=== PATIENT | female | born 1960 | race Caucasian/White ===

== ENCOUNTER → 2021-09-02 10:45 | Outpatient (BNVA) | payer OTHER, SELFPAY | PROVIDERS: PCP Internal Medicine; Referring Provider Internal Medicine; Visit Provider Physician Assistant | DX: R13.10 Dysphagia, unspecified (principal); K21.9 Gastro-esophageal reflux disease without esophagitis; R10.9 Unspecified abdominal pain | CPT/HCPCS: 99212 ==

== ENCOUNTER 2021-09-02 11:55 | Outpatient (REF) | payer OTHER, SELFPAY ==
[2021-09-02 14:00] LABS: MANUAL DIFF FLAG NO
[2021-09-02 14:08] LABS: Basophils Absolute Auto 0.1 X10*3/uL (0.0-0.2); Basophils Percent Auto 0.7 % (0-2); Eosinophils Absolute Auto 0.2 X10*3/uL (0.0-0.4); Eosinophils Percent Auto 2.2 % (0-4); Hematocrit 40.4 % (37-47); Imm Gran Abs Auto 0.02 X10*3/uL (0.00-0.03); Imm Gran Pct Auto 0.3 % (0.0-0.4); Lymphocytes Absolute Auto 2.4 X10*3/uL (1.2-4.9); Lymphocytes Percent Auto 35.9 % (20-40); Mean Corpuscular HGB Conc 32.2 g/dl (31.0-35.0); Mean Corpuscular Hemoglobin 28.7 pg (27.0-33.0); Mean Corpuscular Volume 89.2 fL (80-98); Mean Platelet Volume 11.4 fL (9.4-12.3); Monocytes Absolute Auto 0.4 X10*3/uL (0.1-1.2); Monocytes Percent Auto 6.4 % (2-11); Neutrophils Absolute Auto 3.6 X10*3/uL (2.0-8.3); Neutrophils Percent Auto 54.5 % (45-73); Platelet Count 316 X10*3/uL (160-400); Red Blood Count 4.53 X10*6/uL (4.20-5.50); Red Cell Distribution Width 12.9 % (11.0-16.0); White Blood Count 6.7 X10*3/uL (4.8-10.8)
[2021-09-02 14:16] LABS: Estimated Average Glucose 126 mg/dL
[2021-09-02 14:32] LABS: Alanine Aminotransferase 18 U/L (0-31); Albumin Level 4.5 g/dL (3.5-5.0); Alkaline Phosphatase 98 U/L (39-117); Anion Gap 12 (12-20); Aspartate Amino Transferase 17 U/L (5-31); Bilirubin Total 0.5 mg/dL (0.0-1.0); Blood Urea Nitrogen 12 mg/dL (9-16); Calcium 9.7 mg/dL (8.4-10.2); Carbon Dioxide 27 mmol/L (22-29); Chloride 106 mmol/L (96-108); Estimated Glomerular Filt Rate > 60; Glucose Random 108 mg/dL (60-115); Potassium 4.5 mmol/L (3.3-5.1); Sodium 140 mmol/L (135-145); Total Protein 7.3 g/dL (6.5-8.0)
[2021-09-02 14:53] LABS: Thyroid Stimulating Hormone 1.54 uIU/mL (0.32-4.0)
== END 2021-09-02 11:56 | disposition home or self-care (01) ==
LOC: HO.WFDLDS 11:55
PROVIDERS: Visit Provider Physician Assistant
DX: R10.9 Unspecified abdominal pain (principal); K59.09 Other constipation
CPT/HCPCS: 36415; 80053; 83036; 84443; 85025

== ENCOUNTER 2021-09-15 12:37 | Outpatient (REF) | payer OTHER, SELFPAY | END 2021-09-15 12:38 | disposition home or self-care (01) | LOC: HO.WFDLNP 12:37 | PROVIDERS: Visit Provider Physician Assistant | DX: A04.8 Other specified bacterial intestinal infections (principal) | CPT/HCPCS: 87338 ==

== ENCOUNTER 2021-12-17 10:13 | Outpatient (REF) | payer OTHER, SELFPAY ==
--- NOTE | ~2021-12-17 | US_ITS ---
EXAMINATION: US ABDOMEN COMPLETE CLINICAL INFORMATION: Right upper quadrant pain. COMPARISON: None TECHNIQUE: Real-time imaging of the abdominal viscera. FINDINGS: PANCREAS: The pancreas is partially obscured by overlying gas. The visualized body of the pancreas is unremarkable. ABDOMINAL AORTA: The proximal, mid, and distal segments are normal in caliber. INFERIOR VENA CAVA: Visualized portions are normal. LIVER: Normal. The liver is normal in size. The liver contour is normal. Parenchymal echogenicity is increased. No focal hepatic lesion. There is no intrahepatic biliary duct dilatation seen. GALLBLADDER: Normal. The gallbladder is physiologically distended without evidence of stones, sludge, polyps, wall thickening or pericholecystic fluid. COMMON BILE DUCT: Normal in caliber measuring 0.67 cm in diameter. RIGHT KIDNEY: Normal. No hydronephrosis. No renal calculi or focal parenchymal lesions. The kidney measures 9.9 cm in maximum dimension. LEFT KIDNEY: Normal. No hydronephrosis. No renal calculi or focal parenchymal lesions. The kidney measures 11.2 cm in maximum dimension. SPLEEN: Normal. The spleen measures 9.8 cm in maximum dimension. FREE FLUID: None. US/US abdomen complete IMPRESSION: Mild hepatic steatosis without focal lesion. The pancreas is partially obscured by overlying gas. The rest of the abdominal ultrasound is unremarkable.
== END 2021-12-17 10:14 | disposition home or self-care (01) ==
LOC: HO.US 10:13
PROVIDERS: Visit Provider Physician Assistant
DX: R10.11 Right upper quadrant pain (principal)
CPT/HCPCS: 76700

== ENCOUNTER → 2021-12-23 10:51 | Outpatient (BNVA) | payer OTHER, SELFPAY | PROVIDERS: PCP Internal Medicine; Visit Provider Physician Assistant | DX: K21.9 Gastro-esophageal reflux disease without esophagitis (principal); R10.9 Unspecified abdominal pain | CPT/HCPCS: 99212 ==

== ENCOUNTER 2022-02-18 10:04 | Outpatient (REF) | payer OTHER, SELFPAY ==
--- NOTE | ~2022-02-18 | FL_ITS ---
EXAMINATION: FL BARIUM SWALLOW CLINICAL INFORMATION: Abdominal epigastric pain. COMPARISON: None TECHNIQUE: Barium swallow examination is performed using fluoroscopic evaluation in addition to multiple fluoroscopic spot views. The patient is imaged both upright and prone and using both thick and thin sulfate along with effervescent granules. Fluoroscopy time: 1 minutes DAP: 7.98 Gycm2 Images: 34 FINDINGS: Following intravenous administration of thick barium, barium-coated turkey in upright position, there is normal propagation of bolus from the oral cavity through the pharynx, esophagus into stomach without any evidence of obstruction or narrowing. On placing patient prone lying and with oral administration of thin barium, there is good distention of entire esophagus without intrinsic narrowing or extrinsic compression. A small sliding hiatal hernia with mild reflux is seen. FL/FL barium swallow IMPRESSION: Small sliding hiatal hernia with mild gastroesophageal reflux in supine position.
== END 2022-02-18 10:05 | disposition home or self-care (01) ==
LOC: HO.XRAY 10:04
PROVIDERS: Visit Provider Physician Assistant
DX: R10.9 Unspecified abdominal pain (principal)
CPT/HCPCS: 74220

== ENCOUNTER → 2022-03-03 13:00 | Outpatient (BNVA) | payer OTHER, SELFPAY | PROVIDERS: PCP Internal Medicine; Referring Provider Internal Medicine; Visit Provider Physician Assistant | DX: K21.9 Gastro-esophageal reflux disease without esophagitis (principal); K44.9 Diaphragmatic hernia without obstruction or gangrene; R13.10 Dysphagia, unspecified; R10.9 Unspecified abdominal pain; R19.5 Other fecal abnormalities | CPT/HCPCS: 99212 ==

== ENCOUNTER → 2023-01-27 10:00 | Outpatient (BNVA) | payer OTHER, SELFPAY | PROVIDERS: PCP Internal Medicine; Visit Provider Physician Assistant ==

== ENCOUNTER 2023-01-27 10:51 | Outpatient (REF) | payer OTHER, SELFPAY ==
[2023-01-27 14:44] LABS: MANUAL DIFF FLAG NO
[2023-01-27 14:49] LABS: Basophils Absolute Auto 0.1 X10*3/uL (0.0-0.2); Basophils Percent Auto 0.9 % (0-2); Eosinophils Absolute Auto 0.2 X10*3/uL (0.0-0.4); Eosinophils Percent Auto 2.3 % (0-4); Hematocrit 42.3 % (37.0-47.0); Hemoglobin 13.7 g/dl (12.0-16.0); Imm Gran Abs Auto 0.03 X10*3/uL (0.00-0.03); Imm Gran Pct Auto 0.3 % (0.0-0.4); Lymphocytes Absolute Auto 2.7 X10*3/uL (1.2-4.9); Lymphocytes Percent Auto 30.6 % (20-40); Mean Corpuscular HGB Conc 32.4 g/dl (31.0-35.0); Mean Corpuscular Hemoglobin 29.2 pg (27.0-33.0); Mean Corpuscular Volume 90.2 fL (80.0-98.0); Monocytes Absolute Auto 0.5 X10*3/uL (0.1-1.2); Neutrophils Absolute Auto 5.3 x10*3/uL (2.0-8.3); Neutrophils Percent Auto 59.9 % (45-73); Platelet Count 394 X10*3/uL (160-400); Red Blood Count 4.69 X10*6/uL (4.20-5.50); White Blood Count 8.8 X10*3/uL (4.8-10.8)
[2023-01-27 15:05] LABS: Alanine Aminotransferase 21 U/L (0-31); Albumin Level 4.4 g/dL (3.5-5.0); Alkaline Phosphatase 95 U/L (39-117); Anion Gap 11 (12-20); Aspartate Amino Transferase 17 U/L (5-31); Bilirubin Total 0.5 mg/dL (0.0-1.0); Blood Urea Nitrogen 14 mg/dL (9-16); Calcium 9.4 mg/dL (8.4-10.2); Carbon Dioxide 31 mmol/L (22-29); Chloride 102 mmol/L (96-108); Estimated Glomerular Filt Rate > 60; Glucose Random 104 mg/dL (60-115); Potassium 4.6 mmol/L (3.3-5.1); Sodium 139 mmol/L (135-145); Total Protein 7.1 g/dL (6.5-8.0)
== END 2023-01-27 10:52 | disposition home or self-care (01) ==
LOC: HO.WFDLDS 10:51
PROVIDERS: Visit Provider Physician Assistant
DX: K21.9 Gastro-esophageal reflux disease without esophagitis (principal); K58.1 Irritable bowel syndrome with constipation; K58.0 Irritable bowel syndrome with diarrhea; K44.9 Diaphragmatic hernia without obstruction or gangrene; R10.11 Right upper quadrant pain; R19.5 Other fecal abnormalities
CPT/HCPCS: 36415; 80053; 85025; 99212

== ENCOUNTER 2023-02-11 09:18 | Outpatient (REF) | payer OTHER, SELFPAY ==
--- NOTE | ~2023-02-11 | US_ITS ---
EXAMINATION: US ABDOMEN COMPLETE CLINICAL INFORMATION: Right upper quadrant pain. Distant status post cholecystectomy. Please comment on CBD. COMPARISON: Ultrasound abdomen complete 12/17/2021. TECHNIQUE: Real-time imaging of the abdominal viscera. FINDINGS: PANCREAS: The pancreas appears unremarkable, without masses or ductal dilatation, with the exception of the tail which is obscured by bowel gas. ABDOMINAL AORTA: The proximal, mid, and distal segments are normal in caliber. INFERIOR VENA CAVA: Visualized portions are normal. LIVER: The liver is enlarged and demonstrates increased echogenicity consistent with hepatic steatosis. The liver contour is normal. No focal hepatic lesion. There is no intrahepatic biliary duct dilatation seen. GALLBLADDER: Surgically absent. COMMON BILE DUCT: Normal in caliber measuring 0.6 cm in diameter. RIGHT KIDNEY: Normal. No hydronephrosis. No renal calculi or focal parenchymal lesions. The kidney measures 11.3 cm in maximum dimension. LEFT KIDNEY: Normal. No hydronephrosis. No renal calculi or focal parenchymal lesions. The kidney measures 11.3 cm in maximum dimension. SPLEEN: Normal. The spleen measures 10.1 cm in maximum dimension. FREE FLUID: None. US/US abdomen complete IMPRESSION: Enlarged fatty liver.
== END 2023-02-11 09:19 | disposition home or self-care (01) ==
LOC: HO.HMGCX 09:18
PROVIDERS: Visit Provider Physician Assistant
DX: R10.11 Right upper quadrant pain (principal)
CPT/HCPCS: 76700

== ENCOUNTER 2023-02-25 10:39 | Day surgery (SDC) | payer OTHER, SELFPAY ==
[2023-02-25 10:48] VITALS: BP 148/84; PULSE 68; RESP 16; TEMP 36.3; O2SAT 98; BMI 34.3
--- NOTE | 2023-02-25 11:04 | MHC.SHP ---
Pre-Procedural Eval Section A Date of Service: 02/25/23 Section B Chief Complaint: GERD,Unspecified abdominal pain,Diaphragmatic nancy Relevant Family History (Specify if Yes): No Relevant Social History: None Present Medications: see Short Stay Collaborative assessment Medical History: Significant History (asthma, depression, GERD) History of Previous Operations: Relevant previous surgery/procedure and date(s) (History of cholecystectomy) Allergies: Allergies Allergy/AdvReac Type Severity Reaction Status Date / Time aspirin [ASA] Allergy Unknown NAUSEA & Verified 02/22/23 11:43 VOMITING ibuprofen [From MOTRIN] Allergy Unknown HEADACHES Verified 02/22/23 11:43 egg Allergy Nausea, Verified 02/22/23 11:42 choking Review of Systems Sugical H&P ROS: Negative: Constitution, Cardiovascular, Respiratory, Neurological, Psychiatric, Hem-Onc, Allergic/Immunologic, Gastrointestinal, Genitourinary, Musculoskeletal, Integumentary, Endocrine and Eyes/Ears/Nose/Throat Exam Surgical H&P Exam: Normal: HEENT, Normal: Heart, Normal: Lungs, Normal: Extremities, Normal: Abdomen, Normal: Skin and Normal: Neurological Plan Diagnosis/Plan: Unchanged I have reviewed the history and physical and performed a pertinent physical examination on my patient. No changes have occurred unless specified. Time Spent With Patient Time: Total time managing care of this patient today ____ minutes.
[2023-02-25] MEDS: Lactated Ringers 1,000 ML 80 ML IVCONT (11:11)
--- NOTE | 2023-02-25 11:31 | W.PM.OPN ---
Operative Note Operative Note Date of Service: 02/25/23 Narrative: Operative Information Procedure Description: EGD, Colonoscopy Indication: GERD and choking, screening Anesthesia: MAC FLEXIBLE TRANSORAL UPPER GASTROINTESTINAL ENDOSCOPY AND COLONOSCOPY PROCEDURE NOTE UPPER ENDOSCOPY Consent: Indications for the procedure and potential complications of bleeding, perforation, reaction to medications and missed diagnosis were discussed with the patient and informed consent was obtained. Instrument: Olympus GIF H 190 J mid size upper endoscope Monitoring: Vital signs and clinical assessment, continuous EKG monitoring, Pulse oximetry, Carbon Dioxide monitoring and blood pressure monitoring were done throughout the procedure. Procedure: The patient was placed in the left lateral decubitis position and pre-procedure medications were administered and a bite block was placed. The endoscope was inserted into the mouth and advanced under direct vision to the third part of duodenum. A careful inspection was made as the upper endoscope was withdrawn including a retroflexed examination of the proximal stomach; Findings and interventions are described below. Findings: Larynx:normal Esophagus: GE junction at 37 cm, diaphragm hiatus at 39 cm, consistent with 2 cm sliding hiatal hernia. erosive esophagitis with schatzki ring noted, balloon dilation done at distal esophagus and UES to 20 mm, no tears seen. Bx taken from GEJ, distal and proximal esophagus Stomach: Antral erosions and redness. Biopsies were obtained. Grade 3 flap valve on retroflexed examination of the cardia. Duodenum: Normal bulb and descending duodenum, Intervention: Biopsies as noted above, balloon dilation COLONOSCOPY Instrument: Olympus variable stiffness pediatric scope 190L Colonoscopy Monitoring: Vital signs and clinical assessment, continuous EKG monitoring, Pulse oximetry, Carbon Dioxide monitoring and blood pressure monitoring were done throughout the procedure. Colon withdrawal time was 17 minutes. Procedure: The patient was placed in the left lateral decubitis position and pre-procedure medications were administered. After a digital rectal examination of the ano-rectum, the video colonoscope was inserted into the rectum and advanced through the colon to the cecum/TI. The colonoscope was slowly withdrawn in a retrograde panoramic fashion and the colon mucosa was carefully examined including a retroflexed view of the rectum. Findings and interventions are described below. Procedure Difficulty:difficult due to redundant and tortuous colon Findings: Terminal Ileum-not intubated Cecum: 10 mm sessile polyp removed with cold snare Ascending Colon: x1 sessile polyp 5-7 mm removed with cold forceps and 12 mm flat polyp injected with eleview and then removed with cold snare Transverse Colon -normal Descending Colon:normal Sigmoid Colon: moderate diverticulosis, 8-10 mm sessile polyp removed with cold snare Rectum: Retroflexion with small internal hemorrhoids, grade I Anorectum - normal Colon preparation: [place] Bowel Preparation Scale Right colon; 2 Transverse colon: 2 Left colon; 2 (0 = Unprepared colon segment with mucosa not seen due to solid stool that cannot be cleared. 1 = Portion of mucosa of the colon segment seen, but other areas of the colon segment not well seen due to staining, residual stool and/or opaque liquid. 2 = Minor amount of residual staining, small fragments of stool and/or opaque liquid, but mucosa of colon segment seen well. 3 = Entire mucosa of colon segment seen well with no residual staining, small fragments of stool or opaque liquid) Impression and Post Procedure Diagnosis: Endoscopy Findings: erosive esophagitis erosive gastritis schatzki ring hiatal hernia Colonoscopy Findings: polyps internal hemorrhoids diverticular disease redundant colon, tortuous Plan: Await Pathology results Repeat Colonoscopy in 3 years or earlier if clinically indicated High fiber diet leaflet avoid straining at stool, epsom salts and sitz bath, anusol supps or cream ensure compliance with PPI, if taking can consider changing, reflux precautions Above findings were reviewed with the patient and relevant handouts were provided if indicated.
--- NOTE | 2023-02-25 11:35 | HO.ANESPROP2 ---
HPI - Anesthesia Eval Consult details Narrative: 62 F for egd colonoscopy PMFSH Active Problems Active Problems: All Active Problems (Updated 02/22/23 @ 11:41 by Mary Chamberlain RN) Acid reflux (Acute) Asthma (Acute) Chronic pain (Acute) Poor historian (Acute) Dysphagia (Acute) Abdominal pain (Acute) RUQ pain (Acute) Depression (Acute) Hiatal hernia (Acute) Change in stool (Acute) Past Medical History Medical History Allergic rhinitis Anxiety Asthma Chronic myofascial pain Depression Diastolic dysfunction Eczema GERD (gastroesophageal reflux disease) HTN (hypertension) Obesity MALINA (obstructive sleep apnea) Osteoarthritis Prediabetes Family History Family history of problems with anesthesia: No Surgical History Surgical History History of cholecystectomy Hx of colonoscopy Hx of total hysterectomy History of Problems with Anesthesia: No Social History Social History Household Members Other:: lives alone Alcohol intake: never Patient Tobacco Use Status: Former Tobacco user Tobacco use type: Cigarette Smoked in Last 30 Days: No Use of substances other than those prescribed or required for medical reasons: No Are you DNR?: No Advance Directives: No Advance Directives Information Provided: Yes Meds Allergies Allergy/AdvReac Type Severity Reaction Status Date / Time aspirin [ASA] Allergy Unknown NAUSEA & Verified 02/25/23 11:16 VOMITING ibuprofen [From MOTRIN] Allergy Unknown HEADACHES Verified 02/25/23 11:16 egg Allergy Nausea, Verified 02/25/23 11:16 choking Active Medications: Current Medications Lactated Ringer's (Lr) 1,000 mls @ 80 mls/hr IVCONT .[id number] BERTIN Last Admin: 02/25/23 11:11 Dose: 80 mls/hr Home Medications Medication Instructions Recorded Confirmed Last Taken Type famotidine 40 mg tablet 40 mg PO DAILY 09/02/21 09/02/21 Unknown History albuterol sulfate 90 mcg/actuation 2 puff inhalation Q6H PRN 12/23/21 12/23/21 Unknown History aerosol inhaler bupropion HCl 150 mg tablet,12 hr 150 mg PO DAILY 12/23/21 12/23/21 Unknown History sustained-release duloxetine 20 mg capsule,delayed 20 mg PO BID 12/23/21 12/23/21 Unknown History release fluticasone 500 mcg-salmeterol 50 1 inh inhalation BID 12/23/21 12/23/21 Unknown History mcg/dose blistr powdr for inhalation (Advair Diskus) fluticasone propionate 50 1 spray intranasal DAILY 12/23/21 12/23/21 Unknown History mcg/actuation nasal spray,suspension (Allergy Relief (fluticasone)) lidocaine 5 % topical patch 1 patch topical DAILY 12/23/21 12/23/21 Unknown History lorazepam 1 mg tablet 1 mg PO BEDTIME PRN 12/23/21 12/23/21 Unknown History Exam Exam Date and Time: February 25, 2023 1135 Height,Weight and Vital Signs: Height 5 ft 3 in Weight 194 lb Last Vital Signs Temp 97.3 F 02/25/23 10:48 Pulse 68 02/25/23 10:48 Resp 16 02/25/23 10:48 BP 148/84 H 02/25/23 10:48 Pulse Ox 98 02/25/23 10:48 O2 Del Method Room Air 02/25/23 10:48 Airway Mallampati Class: II TM Dist: >3cm Neck ROM: Full Loose/Missing/Broken Teeth: No Assessment and Plan Assessment Anesthesia Assessment: Anesthesia Plan Discussed and Chart Reviewed Final Anesthetic Review Family History of Problems with Anesthesia: No History of Problems with Anesthesia: No NPO: Yes ASA Class: III Final Preanesthetic Review: No Changes in Pt Med Stat, Meds/Allgs Chart Reviewed, Consent Obtained/Reviewed and Anes Risks/Benef Reviewed Patient Risk: Intermediate Procedure Risk: Low Anesthetic Plan Anesthetic Plan: MAC: Disposition: Standard PACU
[2023-02-25 12:54] VITALS: BP 105/71; PULSE 64; RESP 18; TEMP 36.7; O2SAT 99
[2023-02-25 13:09] VITALS: BP 116/67; PULSE 61; RESP 18; TEMP 36.7; O2SAT 98
== END 2023-02-25 14:18 | disposition home or self-care (01) ==
PROVIDERS: PCP Internal Medicine; Visit Provider Internal Medicine Gastroenterology
PROC: (CPT 43249; principal; 2023-02-25 12:50)
DX: K21.00 Gastro-esophageal reflux disease with esophagitis, without bleeding (principal); R10.9 Unspecified abdominal pain; K22.2 Esophageal obstruction; K29.60 Other gastritis without bleeding; K44.9 Diaphragmatic hernia without obstruction or gangrene; D12.0 Benign neoplasm of cecum; D12.2 Benign neoplasm of ascending colon; D12.5 Benign neoplasm of sigmoid colon; K57.30 Diverticulosis of large intestine without perforation or abscess without bleeding; K64.0 First degree hemorrhoids; Q43.8 Other specified congenital malformations of intestine; I10 Essential (primary) hypertension; Z79.899 Other long term (current) drug therapy
CPT/HCPCS: 43249; 43239; 45380; 45381; 45385; 88305; 88342; C1726

== ENCOUNTER → 2023-03-16 12:54 | Outpatient (BNVA) | payer OTHER, SELFPAY | PROVIDERS: PCP Internal Medicine; Visit Provider Physician Assistant | DX: K21.9 Gastro-esophageal reflux disease without esophagitis (principal); K29.70 Gastritis, unspecified, without bleeding; K76.0 Fatty (change of) liver, not elsewhere classified; D36.9 Benign neoplasm, unspecified site | CPT/HCPCS: 99202 ==

== ENCOUNTER 2023-03-30 11:50 | Outpatient (REF) | payer OTHER, SELFPAY ==
[2023-04-03 14:10] LABS: H Pylori Breath Test Negative (Negative)
== END 2023-03-30 11:51 | disposition home or self-care (01) ==
LOC: HO.LNP 11:50
PROVIDERS: PCP Internal Medicine; Visit Provider Physician Assistant
DX: A04.8 Other specified bacterial intestinal infections (principal); K21.9 Gastro-esophageal reflux disease without esophagitis
CPT/HCPCS: 83013; 99212

== ENCOUNTER 2025-05-10 12:26 | Outpatient (AMB) | payer OTHER, SELFPAY ==
--- NOTE | 2025-05-10 12:50 | A.OFFVIS_ITS ---
Vital Signs 05/10/25 12:55 Height 5 ft 3 in Weight 201 lb BMI 35.6 BP 127/60 Blood Pressure Location Lt brachial Position Sitting Pulse 71 Pulse Oximetry (%) 95 Oxygen Delivery Method Room Air Intake Visit Reasons: FLORES PT, Acute abd. pain, was seen at ED a wk ago Intake Note: Patient complex follow up for Acute abd. pain, was seen at ED a wk ago/Nia roman deana was 03/30/2023, last Colonoscopy by Dr. Escalona was 02/25/2023 with 3 years recall. Patient cc: abdominal pain with bloating with food or not food intake, acid reflux with burning sensation 14/06, between diarrhea and constipation, swallowing problems, also on 05/02 she went to ther ED due her abdominal pain she have lab abd CT scan results with her. 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 Accompanied by: Family/Other Allergies aspirin (ASA) Allergy (Unknown, Verified 05/10/25 12:52) NAUSEA & VOMITING ibuprofen (From MOTRIN) Allergy (Unknown, Verified 05/10/25 12:52) HEADACHES egg Allergy (Verified 05/10/25 12:52) Nausea, choking Medication List - Last Reconciled 05/10/25 by Taylor Richter CNP albuterol sulfate 90 mcg/actuation 2 puffs inhalation Q6H PRN bisacodyl (Gentle Laxative (bisacodyl)) 10 mg GA DAILY PRN cetirizine 10 mg PO DAILY PRN docusate sodium 200 mg (2 x 100 mg) PO .QHS epinephrine IM famotidine 40 mg PO DAILY fluticasone propion-salmeterol 500-50 mcg/dose (Advair Diskus) 1 inh inhalation BID fluticasone propionate 50 mcg/actuation (Allergy Relief (fluticasone)) 1 spray intranasal DAILY pantoprazole 40 mg PO DAILY 30 days HPI HPI JM PT, Acute abd. pain, was seen at ED a wk ago: Details: Patient is a 64-year-old female with PMH of depression, anxiety, asthma, obesity, MALINA, hypertension, prediabetes and GERD. Last visit with DERICK Fernandes 03/30/2023 for acid reflux Romina presents with ongoing epigastric pain and symptoms of acid reflux. Patient is accompanied by her daughter. Symptoms ongoing since February 2023, following prior EGD and colonoscopy which showed esophagitis and colon polyps. She reports the pain as severe, constant, and burning, worsened by both eating and fasting. She experiences nausea without vomiting, but does have episodes of clear liquid regurgitation. Bread, crackers, and similar foods exacerbate her symptoms. She has been taking pantoprazole and famotidine with inconsistent relief. She occasionally chokes on saliva or food, but can generally swallow solids and liquids. Appetite has increased, possibly in response to pain. She visited the ER on 05/02 for severe abdominal pain, underwent a CT scan and received symptomatic treatment. She subsequently visited urgent care and her primary clinic for ongoing symptoms. Over the past 2?3 months, she has developed a change in bowel habits, now with constipation alternating with occasional diarrhea, and one episode of fecal incontinence. No blood in stool or vomiting. . She reports a few pounds of unintentional weight loss over recent months, but weight is currently stable. Patient denies: fever/chills, unintentional wt loss, ab pain or melena/hematochezia. Social History: - Diet: Inconsistent meals; typically skips breakfast, eats late lunch and dinner. Consumes fruit, cheese, tea, bread, rice, beans, and pork chops. Reports specific triggers such as bread and crackers exacerbating pain. - Alcohol/Tobacco/Drug Use: denies and non-smoker - Occupation: Not mentioned - family hx as below -denies personal hx of CA -denies significant cardiopulmonary history -tolerated anesthesia in the past without difficulty. [facility] Medical History (Updated 05/11/25 @ 12:28 by Taylor Richter CNP) Diarrhea Eczema HTN (hypertension) Depression Asthma Anxiety Prediabetes Chronic myofascial pain Osteoarthritis Diastolic dysfunction Obesity MALINA (obstructive sleep apnea) GERD (gastroesophageal reflux disease) Allergic rhinitis Surgical History Hx of esophagogastroduodenoscopy Hx of colonoscopy Hx of total hysterectomy History of cholecystectomy Social History Household Members Other:: lives alone Alcohol intake: never Patient Tobacco Use Status: Former Tobacco user Tobacco use type: Cigarette Review of Systems Const Reports as per HPI ENT Reports as per HPI Card Reports as per HPI Resp Reports as per HPI GI Reports as per HPI Reports as per HPI Physical Exam Vital Signs: Last Vital Signs Pulse 71 05/10/25 12:55 BP 127/60 05/10/25 12:55 Pulse Ox 95 05/10/25 12:55 Oxygen Delivery Method Room Air 05/10/25 12:55 BMI result Body Mass Index 35.6 Const General: healthy appearing, no acute distress and well developed Nutritional Appearance: well nourished Orientation/consciousness: patient oriented x3 HEENT Head: Yes normal to inspection, Yes normocephalic and Yes atraumatic Face and sinus: Yes normal facial exam Eyes General: appearance normal, both eyes and all related structures Neck Neck: Yes normal visual inspection Resp Effort & Inspection: normal respiratory effort, able to speak in complete sentences, no tracheal deviation and symmetric chest movement Auscultation: clear to auscultation bilaterally Cardio Jugular venous distension: no JVD Rate: regular rate Rhythm: regular rhythm Heart sounds: S1 normal heart sound present, S2 normal heart sound present, no gallops and no murmurs GI Inspection: Yes normal to inspection and No distended Palpation (GI): Soft to palpation, not firm, Tenderness to palpation present (GI) in the epigastrum and in the RLQ and No hepatosplenomegaly present Auscultation: normal bowel sounds Neuro General: patient oriented x3 Gait exam (Neuro): Normal gait present Psych Appearance: grossly normal Mental Status: mental status grossly normal Speech and movement: Normal speech and movement present Affect: normal affect Attitude: cooperative Thought process: Normal thought process present Thought content: Normal thought content present Insight: Good insight present (Psych) Judgement: Good judgement present (Psych) Results Reviewed Results Reviewed: Operative Note Date of Service: 02/25/23 Narrative: Operative Information Procedure Description: EGD, Colonoscopy Indication: GERD and choking, screening Anesthesia: MAC FLEXIBLE TRANSORAL UPPER GASTROINTESTINAL ENDOSCOPY AND COLONOSCOPY PROCEDURE NOTE UPPER ENDOSCOPY Consent: Indications for the procedure and potential complications of bleeding, perforation, reaction to medications and missed diagnosis were discussed with the patient and informed consent was obtained. Instrument: Olympus GIF H 190 J mid size upper endoscope Monitoring: Vital signs and clinical assessment, continuous EKG monitoring, Pulse oximetry, Carbon Dioxide monitoring and blood pressure monitoring were done throughout the procedure. Procedure: The patient was placed in the left lateral decubitis position and pre-procedure medications were administered and a bite block was placed. The endoscope was inserted into the mouth and advanced under direct vision to the third part of duodenum. A careful inspection was made as the upper endoscope was withdrawn including a retroflexed examination of the proximal stomach; Findings and interventions are described below. Findings: Larynx:normal Esophagus: GE junction at 37 cm, diaphragm hiatus at 39 cm, consistent with 2 cm sliding hiatal hernia. erosive esophagitis with schatzki ring noted, balloon dilation done at distal esophagus and UES to 20 mm, no tears seen. Bx taken from GEJ, distal and proximal esophagus Stomach: Antral erosions and redness. Biopsies were obtained. Grade 3 flap valve on retroflexed examination of the cardia. Duodenum: Normal bulb and descending duodenum, Intervention: Biopsies as noted above, balloon dilation COLONOSCOPY Instrument: Olympus variable stiffness pediatric scope 190L Colonoscopy Monitoring: Vital signs and clinical assessment, continuous EKG monitoring, Pulse oximetry, Carbon Dioxide monitoring and blood pressure monitoring were done throughout the procedure. Colon withdrawal time was 17 minutes. Procedure: The patient was placed in the left lateral decubitis position and pre-procedure medications were administered. After a digital rectal examination of the ano-rectum, the video colonoscope was inserted into the rectum and advanced through the colon to the cecum/TI. The colonoscope was slowly withdrawn in a retrograde panoramic fashion and the colon mucosa was carefully examined including a retroflexed view of the rectum. Findings and interventions are described below. Procedure Difficulty:difficult due to redundant and tortuous colon Findings: Terminal Ileum-not intubated Cecum: 10 mm sessile polyp removed with cold snare Ascending Colon: x1 sessile polyp 5-7 mm removed with cold forceps and 12 mm flat polyp injected with eleview and then removed with cold snare Transverse Colon -normal Descending Colon:normal Sigmoid Colon: moderate diverticulosis, 8-10 mm sessile polyp removed with cold snare Rectum: Retroflexion with small internal hemorrhoids, grade I Anorectum - normal Colon preparation: [place] Bowel Preparation Scale Right colon; 2 Transverse colon: 2 Left colon; 2 (0 = Unprepared colon segment with mucosa not seen due to solid stool that cannot be cleared. 1 = Portion of mucosa of the colon segment seen, but other areas of the colon segment not well seen due to staining, residual stool and/or opaque liquid. 2 = Minor amount of residual staining, small fragments of stool and/or opaque liquid, but mucosa of colon segment seen well. 3 = Entire mucosa of colon segment seen well with no residual staining, small fragments of stool or opaque liquid) Impression and Post Procedure Diagnosis: Endoscopy Findings: erosive esophagitis erosive gastritis schatzki ring hiatal hernia Colonoscopy Findings: polyps internal hemorrhoids diverticular disease redundant colon, tortuous Plan: Await Pathology results Repeat Colonoscopy in 3 years or earlier if clinically indicated High fiber diet leaflet avoid straining at stool, epsom salts and sitz bath, anusol supps or cream ensure compliance with PPI, if taking can consider changing, reflux precautions Above findings were reviewed with the patient and relevant handouts were provided if indicated. PATHOLOGY Received: 02/25/23 Diagnosis A. Stomach, biopsy: Antral-type and oxyntic mucosa with mild chronic inactive inflammation; no Helicobacter organisms seen. B. EG junction, biopsy: - Cardiofundic-type mucosa with mild chronic inactive inflammation; no intestinal metaplasia seen. - No squamous epithelium identified. C. Esophagus, distal, biopsy: Squamous mucosa within normal limits; no inflammation seen. D. Cecum, polypectomy: Fragments of tubular adenoma; negative for high-grade dysplasia or carcinoma. E. Colon, ascending, polypectomies (2): Fragments of tubular adenomata; negative for high-grade dysplasia or carcinoma. F. Colon, sigmoid, polypectomy: Tubular adenoma; negative for high-grade dysplasia or carcinoma. Clinical History Pre-Op Dx: GERD, abdominal pain, diaphragmatic hernia Post-Op Dx: Erosive esophagitis, Schatzki's ring, hiatal hernia, erosive gastritis, lax LES, diverticulosis, hemorrhoids, colon polyps, redundant colon Date of Service: 02/11/23 Procedure(s): US abdomen complete Accession Number(s): [id number] cc: Nia Cancino PA-C~ EXAMINATION: US ABDOMEN COMPLETE CLINICAL INFORMATION: Right upper quadrant pain. Distant status post cholecystectomy. Please comment on CBD. COMPARISON: Ultrasound abdomen complete 12/17/2021. TECHNIQUE: Real-time imaging of the abdominal viscera. FINDINGS: PANCREAS: The pancreas appears unremarkable, without masses or ductal dilatation, with the exception of the tail which is obscured by bowel gas. ABDOMINAL AORTA: The proximal, mid, and distal segments are normal in caliber. INFERIOR VENA CAVA: Visualized portions are normal. LIVER: The liver is enlarged and demonstrates increased echogenicity consistent with hepatic steatosis. The liver contour is normal. No focal hepatic lesion. There is no intrahepatic biliary duct dilatation seen. GALLBLADDER: Surgically absent. COMMON BILE DUCT: Normal in caliber measuring 0.6 cm in diameter. RIGHT KIDNEY: Normal. No hydronephrosis. No renal calculi or focal parenchymal lesions. The kidney measures 11.3 cm in maximum dimension. LEFT KIDNEY: Normal. No hydronephrosis. No renal calculi or focal parenchymal lesions. The kidney measures 11.3 cm in maximum dimension. SPLEEN: Normal. The spleen measures 10.1 cm in maximum dimension. FREE FLUID: None. US/US abdomen complete IMPRESSION: Enlarged fatty liver. Date of Service: 02/18/22 Procedure(s): FL barium swallow Accession Number(s): [id number] cc: Nia Cancino PA-C~ EXAMINATION: FL BARIUM SWALLOW CLINICAL INFORMATION: Abdominal epigastric pain. COMPARISON: None TECHNIQUE: Barium swallow examination is performed using fluoroscopic evaluation in addition to multiple fluoroscopic spot views. The patient is imaged both upright and prone and using both thick and thin sulfate along with effervescent granules. Fluoroscopy time: 1 minutes DAP: 7.98 Gycm2 Images: 34 FINDINGS: Following intravenous administration of thick barium, barium-coated turkey in upright position, there is normal propagation of bolus from the oral cavity through the pharynx, esophagus into stomach without any evidence of obstruction or narrowing. On placing patient prone lying and with oral administration of thin barium, there is good distention of entire esophagus without intrinsic narrowing or extrinsic compression. A small sliding hiatal hernia with mild reflux is seen. FL/FL barium swallow IMPRESSION: Small sliding hiatal hernia with mild gastroesophageal reflux in supine position. Assessment & Plan Assessment & Plan (1) Acid reflux: Comment: 02/25/23 EGD-Erosive esophagitis, Schatzki's ring, hiatal hernia, erosive gastritis, lax LES, Code(s): K21.9 - Gastro-esophageal reflux disease without esophagitis Category: Medical Qualifiers: Esophagitis presence: esophagitis presence not specified Qualified Code(s): K21.9 - Gastro-esophageal reflux disease without esophagitis Plan: Persistent GERD with esophagitis Additional Tests: Upper endoscopy and colonoscopy; blood tests including stool analysis. Medications: Adjust current medications: - Pantoprazole 40mg oral daily before breakfast - Famotidine 20mg oral at bedtime - Consider introducing sucralfate if symptoms persist Encouraged to take pantoprazole as prescribed, taken at least 30-60 minutes before a meal. Education on GERD prevention : -Advised against heavy meals; encouraged small, frequent meals instead of large ones. - Instructed to remain upright for 2?3 hours after eating. - Advised to avoid late-night meals, spicy foods, caffeine, alcohol, known dietary triggers, and tight-fitting clothing. - Emphasis placed on gradual implementation of lifestyle changes to improve adherence and symptom control. (2) Change in stool: Comment: 02/25/23 Colonoscopy, complete with adequate prep- diverticulosis, Fragments of tubular adenoma to cecum, ascending and sigmoid; redundant colon, internal hemorrhoids. Recommendation to repeat in 3 years Code(s): R19.5 - Other fecal abnormalities Category: Medical Plan: Constipation with occasional diarrhea, possible celiac disease or other inflammatory processes. Additional Tests: Stool sample submission, colonoscopy as above and potential additional imaging if indicated Medications: Restart previous stool softeners as needed and evaluate the reintroduction of laxatives (e.g., Miralax) if deemed necessary Reinforced lifestyle modifications to promote regularity: -higher fiber diet, as tolerated -adequate hydration with water -150 minutes of moderate intensity exercise per week (3) Abdominal pain: Code(s): R10.9 - Unspecified abdominal pain Category: Medical Qualifiers: Abdominal location: epigastric Qualified Code(s): R10.13 - Epigastric pain Plan: Persistent, burning epigastric pain with acid reflux, regurgitation, and food triggers; history of esophagitis on prior EGD. Reviewed findings from 05/02/2025 ER visit at [facility]. Normal CBC, slightly elevated alkaline phos otherwise unremarkable CMP. Questionable small cysts to right hepatic lobe noted on CT abdomen/pelvis, otherwise unremarkable. Additional Tests: - fasting lab - plan as above Plan Follow-up after endoscopy or sooner as needed Time: I spent a total of 40 minutes on the date of encounter which includes: Preparing to see the patient (reviewed previous documentation, test results and medical history) Performing a medically appropriate exam and/or evaluation Ordering medications, tests, and procedures Documenting clinical information in the health record Orders: Orders Complete Blood Count Auto Diff Today R19.7 - Diarrhea, unspecified IRON PROFILE Today R19.7 - Diarrhea, unspecified Comprehensive [place]. Panel Fast Today R19.7 - Diarrhea, unspecified TSH reflex Free T4 Today R19.7 - Diarrhea, unspecified C Reactive Protein Today R19.7 - Diarrhea, unspecified Calprotectin, Fecal Today R19.7 - Diarrhea, unspecified Transglutaminase IgA Today R19.7 - Diarrhea, unspecified Medications: New bisacodyl Take four tablets once for 1 day per colonoscopy instructions 5 mg PO ONCE 4 tabs 0RF 1 day polyethylene glycol 3350 (Miralax) per colonoscopy prep instructions 238 grams PO ONCE 238 grams 0RF Changed From docusate sodium 200 mg (2 x 100 mg) PO .QHS 60 caps 5RF To docusate sodium 200 mg (2 x 100 mg) PO .QHS PRN 60 caps 5RF constipation Coding Level of Care Code Established Pt Est Pt Level 5 (10707) Patient Type Established Diagnoses Gastroesophageal reflux disease, unspecified whether esophagitis present K21.9 Esophagitis presence: esophagitis presence not specified Change in stool R19.5 Epigastric pain R10.13 Abdominal location: epigastric
[2025-05-10 12:55] VITALS: BP 127/60; PULSE 71; O2SAT 95; BMI 35.6
== END 2025-05-10 13:40 | disposition home or self-care (01) ==
LOC: HO.HGI 12:26
PROVIDERS: PCP Internal Medicine; Visit Provider Nurse Practitioner Family
DX: K21.9 Gastro-esophageal reflux disease without esophagitis (principal); R19.5 Other fecal abnormalities; R10.13 Epigastric pain
CPT/HCPCS: 99215

== ENCOUNTER → 2025-05-10 12:26 | Outpatient (BNVA) | payer OTHER, SELFPAY | PROVIDERS: PCP Internal Medicine; Visit Provider Nurse Practitioner Family | DX: K21.9 Gastro-esophageal reflux disease without esophagitis (principal); R19.5 Other fecal abnormalities; R10.13 Epigastric pain | CPT/HCPCS: 99212 ==

== ENCOUNTER 2025-05-11 09:54 | Outpatient (REF) | payer OTHER, SELFPAY ==
[2025-05-11 10:06] LABS: MANUAL DIFF FLAG NO
[2025-05-11 10:20] LABS: Basophils Absolute Auto 0.1 X10*3/uL (0.0-0.2); Basophils Percent Auto 0.8 % (0-2); Eosinophils Absolute Auto 0.2 X10*3/uL (0.0-0.4); Eosinophils Percent Auto 3.5 % (0-4); Hematocrit 39.8 % (37.0-47.0); Hemoglobin 13.5 g/dl (12.0-16.0); Imm Gran Abs Auto 0.02 X10*3/uL (0.00-0.03); Imm Gran Pct Auto 0.3 % (0.0-0.4); Lymphocytes Absolute Auto 2.2 X10*3/uL (1.2-4.9); Mean Corpuscular HGB Conc 33.9 g/dl (31.0-35.0); Mean Corpuscular Hemoglobin 29.7 pg (27.0-33.0); Mean Corpuscular Volume 87.7 fL (80.0-98.0); Mean Platelet Volume 10.6 fL (9.4-12.3); Monocytes Absolute Auto 0.5 X10*3/uL (0.1-1.2); Monocytes Percent Auto 6.8 % (2-11); Neutrophils Absolute Auto 3.7 x10*3/uL (2.0-8.3); Neutrophils Percent Auto 55.6 % (45-73); Platelet Count 277 X10*3/uL (160-400); Red Blood Count 4.54 X10*6/uL (4.20-5.50); Red Cell Distribution Width 12.7 % (11.0-16.0); White Blood Count 6.6 X10*3/uL (4.8-10.8)
[2025-05-11 11:04] LABS: Alanine Aminotransferase 22 U/L (0-31); Albumin Level 4.4 g/dL (3.5-5.0); Alkaline Phosphatase 94 U/L (39-117); Anion Gap 10 (12-20); Aspartate Amino Transferase 31 U/L (5-31); Bilirubin Total 0.4 mg/dL (0.0-1.0); Blood Urea Nitrogen 13 mg/dL (9-16); C Reactive Protein 0.79 mg/dL (< or = 0.50); Calcium 9.2 mg/dL (8.4-10.2); Carbon Dioxide 26 mmol/L (22-29); Chloride 107 mmol/L (96-108); Estimated Glomerular Filt Rate > 60; Glucose Fasting 115 mg/dL (60-99); Iron 82 mcg/dL (30-160); Percent Iron Saturation 29 % (15-50); Sodium 139 mmol/L (135-145); TSH reflex Free T4 2.84 uIU/mL (0.32-4.0); Total Iron Binding Capacity 280 mcg/dL (228-428); Total Protein 7.1 g/dL (6.5-8.0); Unsaturated Iron Binding 198 ug/dL
[2025-05-14 22:43] LABS: Transglutaminase IgA <1.0 U/mL
[2025-05-18 19:34] LABS: Calprotectin, Fecal 21 mcg/g
== END 2025-05-11 09:55 | disposition home or self-care (01) ==
LOC: HO.LAB 09:54
PROVIDERS: Visit Provider Nurse Practitioner Family
DX: R19.7 Diarrhea, unspecified (principal)
CPT/HCPCS: 36415; 80053; 83540; 83993; 84443; 85025; 86140; 86364

== ENCOUNTER 2025-06-26 10:43 | Outpatient (AMB) | payer OTHER, SELFPAY ==
--- NOTE | 2025-06-26 10:52 | A.OFFVIS_ITS ---
Vital Signs 06/26/25 10:53 Height 5 ft 3 in Weight 201 lb BMI 35.6 BP 144/68 H Blood Pressure Location Lt brachial Position Sitting Pulse 59 Pulse Oximetry (%) 97 Oxygen Delivery Method Room Air Intake Visit Reasons: jm pt gerd stomach pain Intake Note: Patient follow up for GERD and abdominal pain and lab results/ no fecal results Patient cc: nauseas, acid reflex with burning sensation and burping, between diarrhea and constipation, and some swallowing difficulties. [employer] Required: No Accompanied by: Family/Other Allergies aspirin (ASA) Allergy (Unknown, Verified 06/26/25 10:52) NAUSEA & VOMITING ibuprofen (From MOTRIN) Allergy (Unknown, Verified 06/26/25 10:52) HEADACHES egg Allergy (Verified 06/26/25 10:52) Nausea, choking HPI HPI jm pt gerd stomach pain: Details: Patient is a 64-year-old female with PMH of depression, anxiety, asthma, obesity, MALINA, hypertension, prediabetes and GERD. Last visit with DERICK Fernandes 03/30/2023 for acid reflux Since our last visit in April, symptoms remain unchanged: alternating constipation and loose stools persist without notable progression. Epigastric pain and reflux symptoms have continued. Patient notes burning symptoms in the evening and nausea when not eating during the day, as well as bloating after eating. Compliance with medication and lifestyle recommendations has been partial; patient has avoided dulcolax stool softener due to fear of adverse effects and is not taking sucralfate prescribed by their PCP. Current reflux management includes pantoprazole 40mg and famotidine; however, symptoms remain uncontrolled, particularly nocturnal reflux. No new interim events such as hospitalizations or flares are reported. Pending endoscopic procedures (upper endoscopy and colonoscopy) remain unscheduled; patient highlights barriers with insurance coverage for prep materials. REVIEW OF PREVIOUS PLAN April 2025: Labs ordered: negative for celiac disease and inflammatory bowel disease (IBD), normal thyroid, kidney, and liver function, electrolytes within threshold, no anemia or iron deficiency. Medications: Pantoprazole dosage increased to 40mg daily and famotidine at bedtime added for reflux management. Referrals: Patient referred for colonoscopy and upper endoscopy. Lifestyle recommendations: Avoid trigger foods (spicy, fried, acidic), eat smaller meals, avoid eating close to bedtime. [facility] Medical History (Updated 05/11/25 @ 12:28 by Taylor Richter CNP) Diarrhea Eczema HTN (hypertension) Depression Asthma Anxiety Prediabetes Chronic myofascial pain Osteoarthritis Diastolic dysfunction Obesity MALINA (obstructive sleep apnea) GERD (gastroesophageal reflux disease) Allergic rhinitis Surgical History Hx of esophagogastroduodenoscopy Hx of colonoscopy Hx of total hysterectomy History of cholecystectomy Social History Household Members Other:: lives alone Alcohol intake: never Patient Tobacco Use Status: Former Tobacco user Tobacco use type: Cigarette Review of Systems Const Reports as per HPI ENT Reports as per HPI Card Reports as per HPI Resp Reports as per HPI GI Reports as per HPI Reports as per HPI Physical Exam Vital Signs: Last Vital Signs Pulse 59 06/26/25 10:53 BP 144/68 H 06/26/25 10:53 Pulse Ox 97 06/26/25 10:53 Oxygen Delivery Method Room Air 06/26/25 10:53 BMI result Body Mass Index 35.6 Const General: healthy appearing, no acute distress and well developed Nutritional Appearance: average body habitus Orientation/consciousness: patient oriented x3 HEENT Head: Yes normal to inspection, Yes normocephalic and Yes atraumatic Face and sinus: Yes normal facial exam Eyes General: appearance normal, both eyes and all related structures Neck Neck: Yes normal visual inspection Resp Effort & Inspection: normal respiratory effort, able to speak in complete sentences, no tracheal deviation and symmetric chest movement Cardio Jugular venous distension: no JVD Neuro General: patient oriented x3 Gait exam (Neuro): Normal gait present Psych Appearance: grossly normal Mental Status: mental status grossly normal Speech and movement: Normal speech and movement present Affect: normal affect Attitude: cooperative Thought process: Normal thought process present Thought content: Normal thought content present Insight: Good insight present (Psych) Judgement: Good judgement present (Psych) Assessment & Plan Assessment & Plan (1) Acid reflux: Comment: 02/25/23 EGD-Erosive esophagitis, Schatzki's ring, hiatal hernia, erosive gastritis, lax LES, Code(s): K21.9 - Gastro-esophageal reflux disease without esophagitis Category: Medical Qualifiers: Esophagitis presence: esophagitis presence not specified Qualified Code(s): K21.9 - Gastro-esophageal reflux disease without esophagitis Plan: Persistent symptoms despite PPI and H2-bell treatment, worse nocturnally. DDX: uncontrolled GERD VS Peptic ulcer disease ( 2/2 H. pylori infection) given ongoing epigastric pain, nausea, and dyspepsia, pending upper endoscopy for confirmation. S/P cholecystectomy Additional Testing: upper endoscopy to evaluate for ulcer, H. pylori infection, or structural abnormalities. Medications: -Pantoprazole 40mg oral daily: Continue. -Famotidine 20mg oral nocte: Continue at bedtime. -Start Sucralfate 1g oral: Adjust from TID to bedtime only, as adjunct therapy for nocturnal symptoms; monitor for efficacy in managing reflux and burning symptoms. Lifestyle Recommendations: -Reinforce avoidance of acidic/spicy foods, fried/greasy meals, and large meals. -Stop eating 3 hrs before bedtime. -Suggested dilution method for large tablets for ease of administration. Referrals / Coordination of Care: -Message surgery schedulers to expedite scheduling for upper endoscopy. -Provide guidance on colonoscopy prep, including OTC purchase of Miralax and Gatorade (non-red/blue/purple colors). Follow-Up Plan: -Follow-up after completion of endoscopic procedures. -Symptom progression or new symptoms: Patient to call office promptly. (2) Change in stool: Comment: 02/25/23 Colonoscopy, complete with adequate prep- diverticulosis, Fragments of tubular adenoma to cecum, ascending and sigmoid; redundant colon, internal hemorrhoids. Recommendation to repeat in 3 years Code(s): R19.5 - Other fecal abnormalities Category: Medical Plan: stable, symptoms consistent with alternating constipation and diarrhea, but no evidence from labs of organic causes (e.g., celiac, IBD).No compliance with stool softener noted; further adjustments in management may be needed post- colonoscopy. Additional Testing:Colonoscopy to investigate structural or inflammatory causes for symptoms. Medications:Miralax 238g PO daily for colonoscopy prep Lifestyle Recommendations:Encourage hydration and fiber intake post-procedures for bowel regulation. Follow-Up Plan:Address constipation and diarrhea management following endoscopic findings. Plan Follow-up after endoscopy or sooner as needed Time: I spent a total of 30 minutes on the date of encounter which includes: Preparing to see the patient (reviewed previous documentation, test results and medical history) Performing a medically appropriate exam and/or evaluation Ordering medications, tests, and procedures Documenting clinical information in the health record Coding Level of Care Code Established Pt Est Pt Level 4 (63398) Patient Type Established Diagnoses Gastroesophageal reflux disease, unspecified whether esophagitis present K21.9 Esophagitis presence: esophagitis presence not specified Change in stool R19.5
[2025-06-26 10:53] VITALS: BP 144/68; PULSE 59; O2SAT 97; BMI 35.6
== END 2025-06-26 11:47 | disposition home or self-care (01) ==
LOC: HO.HGI 10:43
PROVIDERS: Visit Provider Nurse Practitioner Family
DX: K21.9 Gastro-esophageal reflux disease without esophagitis (principal); R19.5 Other fecal abnormalities
CPT/HCPCS: 99214

== ENCOUNTER → 2025-06-26 10:43 | Outpatient (BNVA) | payer OTHER, SELFPAY | PROVIDERS: Visit Provider Nurse Practitioner Family | DX: Z71.2 Person consulting for explanation of examination or test findings (principal); K21.9 Gastro-esophageal reflux disease without esophagitis; R19.5 Other fecal abnormalities | CPT/HCPCS: 99212 ==

== ENCOUNTER 2025-08-15 07:06 | Day surgery (SDC) | payer OTHER, SELFPAY ==
[2025-08-13 14:27] VITALS: BMI 35.6
--- NOTE | 2025-08-13 15:02 | P.CONAN_ITS ---
Documented by User: Adrienne Sánchez NP 08/13/25 15:09 HPI - Anesthesia Eval Consult details Narrative: 65 yr old female Upper Endoscopy and Colonoscopy Saw PCP in May 2025 for acid reflux, was advised to continue PPI, H2 bell, sucralfate, sleep on left side MALINA: unsure of CPAP status PMFSH Active Problems Active Problems: All Active Problems (Updated 05/11/25 @ 12:28 by Taylor Richter CNP) Diarrhea (Acute) NAFLD (nonalcoholic fatty liver disease) (Acute) Tubular adenoma (Acute) Gastritis (Acute) Acid reflux (Acute) Asthma (Acute) Chronic pain (Acute) Poor historian (Acute) Dysphagia (Acute) Abdominal pain (Acute) RUQ pain (Acute) Depression (Acute) Hiatal hernia (Acute) Change in stool (Acute) Past Medical History Medical History Diarrhea Eczema HTN (hypertension) Depression Asthma Anxiety Prediabetes Chronic myofascial pain Osteoarthritis Diastolic dysfunction Obesity MALINA (obstructive sleep apnea) GERD (gastroesophageal reflux disease) Allergic rhinitis Family History Family history of problems with anesthesia: No Surgical History Surgical History (Updated 08/15/25 @ 07:16 by Kennedi Headley, RN) Hx of tonsillectomy Hx of esophagogastroduodenoscopy Hx of colonoscopy Hx of total hysterectomy History of cholecystectomy History of Problems with Anesthesia: No Social History Social History Household Members Other:: lives alone Alcohol intake: never Patient Tobacco Use Status: Former Tobacco user Tobacco use type: Cigarette Use of substances other than those prescribed or required for medical reasons: No Are you DNR?: No Advance Directives: No Advance Directives Information Provided: Yes Meds Allergies Allergy/AdvReac Type Severity Reaction Status Date / Time aspirin (ASA) Allergy Unknown NAUSEA & Verified 08/15/25 07:19 VOMITING ibuprofen (From MOTRIN) Allergy Unknown HEADACHES Verified 08/15/25 07:19 egg Allergy Nausea, Verified 08/15/25 07:19 choking Home Medications ?Medication ?Instructions ?Recorded ?Confirmed ?Last Taken ?Type albuterol sulfate 90 mcg/actuation 2 puff inhalation Q 6H PRN 12/23/21 08/15/25 Unknown History aerosol inhaler Shortness Of Breath Or Wheez ing fluticasone 500 mcg-salmeterol 50 1 inh inhalation BID 12/23/21 08/15/25 Unknown History mcg/dose blistr powdr for inhalation (Advair Diskus) fluticasone propionate 50 1 spray intranasal DAILY 12/1308/15/25 Unknown History mcg/actuation nasal spray,suspension (Allergy Relief (fluticasone)) cetirizine 10 mg tablet 10 mg PO DAILY PRN allergies 05/10/25 08/15/25 Unknown History epinephrine 0.3 mg/0.3 mL 0.3 mg IM ONCE PRN Anaphylax is 05/10/25 08/15/25 Unknown History injection, auto-injector sucralfate 1 gram tablet 1 g PO TID 06/26/25 08/15/25 Unknown History Exam Height,Weight and Vital Signs: Height 5 ft 3 in Weight 91.172 kg Pertinent Lab Results Pertinent Lab Results: Laboratory Tests 05/11/25 10:05 WBC 6.6 RBC 4.54 Hgb 13.5 Hct 39.8 Plt Count 277 D Sodium 139 Potassium 4.0 BUN 13 Creatinine 0.81 Narrative Narrative: EKG 04/2025 Normal sinus Nonspecific T wave abnormality No significant change found compared to 02/2024 ECG Assessment and Plan Final Anesthetic Review Family History of Problems with Anesthesia: No History of Problems with Anesthesia: No Documented by User: Brianne Cedillo MD 08/15/25 07:59 [facility] Past Medical History Medical History Diarrhea Eczema HTN (hypertension) Depression Asthma Anxiety Prediabetes Chronic myofascial pain Osteoarthritis Diastolic dysfunction Obesity MALINA (obstructive sleep apnea) GERD (gastroesophageal reflux disease) Allergic rhinitis Surgical History Surgical History (Updated 08/15/25 @ 07:16 by Kennedi Headley, RN) Hx of tonsillectomy Hx of esophagogastroduodenoscopy Hx of colonoscopy Hx of total hysterectomy History of cholecystectomy Social History Social History Household Members Other:: lives alone Alcohol intake: never Patient Tobacco Use Status: Former Tobacco user Tobacco use type: Cigarette Use of substances other than those prescribed or required for medical reasons: No Are you DNR?: No Advance Directives: No Advance Directives Information Provided: Yes Meds Allergies Allergy/AdvReac Type Severity Reaction Status Date / Time aspirin (ASA) Allergy Unknown NAUSEA & Verified 08/15/25 07:19 VOMITING ibuprofen (From MOTRIN) Allergy Unknown HEADACHES Verified 08/15/25 07:19 egg Allergy Nausea, Verified 08/15/25 07:19 choking Home Medications ?Medication ?Instructions ?Recorded ?Confirmed ?Last Taken ?Type albuterol sulfate 90 mcg/actuation 2 puff inhalation Q 6H PRN 12/23/21 08/15/25 Unknown History aerosol inhaler Shortness Of Breath Or Wheez ing fluticasone 500 mcg-salmeterol 50 1 inh inhalation BID 12/23/21 08/15/25 Unknown History mcg/dose blistr powdr for inhalation (Advair Diskus) fluticasone propionate 50 1 spray intranasal DAILY 12/1308/15/25 Unknown History mcg/actuation nasal spray,suspension (Allergy Relief (fluticasone)) cetirizine 10 mg tablet 10 mg PO DAILY PRN allergies 05/10/25 08/15/25 Unknown History epinephrine 0.3 mg/0.3 mL 0.3 mg IM ONCE PRN Anaphylax is 05/10/25 08/15/25 Unknown History injection, auto-injector sucralfate 1 gram tablet 1 g PO TID 06/26/25 08/15/25 Unknown History Exam Airway Mallampati Class: II TM Dist: >3cm Neck ROM: Full Heart: rrr Lungs: cta Assessment and Plan Assessment Anesthesia Assessment: Anesthesia Plan Discussed and Chart Reviewed Final Anesthetic Review NPO: Yes ASA Class: II Final Preanesthetic Review: No Changes in Pt Med Stat, Meds/Allgs Chart Reviewed and Consent Obtained/Reviewed Patient Risk: Low Procedure Risk: Low Anesthetic Plan Anesthetic Plan: MAC: Disposition: Standard PACU
[2025-08-15 07:20] VITALS: BMI 35.7
[2025-08-15 07:29] VITALS: BP 132/79; PULSE 69; RESP 15; TEMP 37; O2SAT 96
[2025-08-15] MEDS: Lactated Ringers 1,000 ML 100 ML IVCONT (07:36)
--- NOTE | 2025-08-15 08:39 | MHC.SHP ---
Pre-Procedural Eval Section A - 24 Hr Update-Section A only Date of Service: 08/15/25 Section B - Complete if H&P > 30 days Chief Complaint: screening,gerd, Relevant Family History (Specify if Yes): No Relevant Social History: None Present Medications: see Short Stay Collaborative assessment Medical History: Significant History (Diarrhea Eczema HTN (hypertension) Depression Asthma Anxiety Prediabetes Chronic myofascial pain Osteoarthritis Diastolic dysfunction Obesity MALINA (obstructive sleep apnea) GERD (gastroesophageal reflux disease) Allergic rhinitis) History of Previous Operations: Relevant previous surgery/procedure and date(s) (Hx of tonsillectomy Hx of esophagogastroduodenoscopy Hx of colonoscopy Hx of total hysterectomy History of cholecystectomy) Allergies: Allergies Allergy/AdvReac Type Severity Reaction Status Date / Time aspirin (ASA) Allergy Unknown NAUSEA & Verified 08/15/25 07:19 VOMITING ibuprofen (From MOTRIN) Allergy Unknown HEADACHES Verified 08/15/25 07:19 egg Allergy Nausea, Verified 08/15/25 07:19 choking Review of Systems Sugical H&P ROS: Negative: Constitution, Cardiovascular, Respiratory, Neurological, Psychiatric, Hem-Onc, Allergic/Immunologic, Gastrointestinal, Genitourinary, Musculoskeletal, Integumentary, Endocrine and Eyes/Ears/Nose/Throat Exam Surgical H&P Exam: Normal: HEENT, Normal: Heart, Normal: Lungs, Normal: Extremities, Normal: Abdomen, Normal: Skin and Normal: Neurological Plan Diagnosis/Plan: Unchanged I have reviewed the history and physical and performed a pertinent physical examination on my patient. No changes have occurred unless specified. Time Spent With Patient Time: Total time managing care of this patient today ____ minutes.
--- NOTE | 2025-08-15 09:16 | P.OPN-COLO_ITS ---
Colonoscopy Operative Note Operative Note Date of Service: 08/15/25 Narrative: Operative Information Procedure Description: EGD, Colonoscopy Indication: GERd, hx of colon polyps, abn bowel habits Anesthesia: MAC FLEXIBLE TRANSORAL UPPER GASTROINTESTINAL ENDOSCOPY AND COLONOSCOPY PROCEDURE NOTE UPPER ENDOSCOPY Consent: Indications for the procedure and potential complications of bleeding, perforation, reaction to medications and missed diagnosis were discussed with the patient and informed consent was obtained. Instrument: Olympus GIF H 190 J mid size upper endoscope Monitoring: Vital signs and clinical assessment, continuous EKG monitoring, Pulse oximetry, Carbon Dioxide monitoring and blood pressure monitoring were done throughout the procedure. Procedure: The patient was placed in the left lateral decubitis position and pre-procedure medications were administered and a bite block was placed. The endoscope was inserted into the mouth and advanced under direct vision to the third part of duodenum. A careful inspection was made as the upper endoscope was withdrawn including a retroflexed examination of the proximal stomach; Findings and interventions are described below. Findings: Larynx:normal Esophagus: GE junction at 37 cm, diaphragm hiatus at 39 cm, consistent with 2 cm sliding hiatal hernia. erosive esophagitis with schatzki ring noted, balloon dilation done at distal esophagus and UES to 20 mm, no tears seen. Bx taken from GEJ, distal Stomach: Antral erosions and redness. Biopsies were obtained. Grade 3 flap valve on retroflexed examination of the cardia. Duodenum: Normal bulb and descending duodenum, bx taken Intervention: Biopsies as noted above, balloon dilation COLONOSCOPY Instrument: Olympus variable stiffness pediatric scope 190L Colonoscopy Monitoring: Vital signs and clinical assessment, continuous EKG monitoring, Pulse oximetry, Carbon Dioxide monitoring and blood pressure monitoring were done throughout the procedure. Colon withdrawal time was 7 minutes. Procedure: The patient was placed in the left lateral decubitis position and pre-procedure medications were administered. After a digital rectal examination of the ano-rectum, the video colonoscope was inserted into the rectum and advanced through the colon to the cecum/TI. The colonoscope was slowly withdrawn in a retrograde panoramic fashion and the colon mucosa was carefully examined including a retroflexed view of the rectum. Findings and interventions are described below. Procedure Difficulty:moderate Findings: Terminal Ileum-normal, bx taken random bx taken from right and left colon in separate jars Cecum:normal Ascending Colon: normal Transverse Colon - 8-10 mm sessile polyp removed with cold snare Descending Colon:normal Sigmoid Colon: moderate diverticulosis Rectum: Retroflexion with small internal hemorrhoids, grade I Anorectum - normal Colon preparation: [place] Bowel Preparation Scale Right colon; 2 Transverse colon: 2 Left colon; 2 (0 = Unprepared colon segment with mucosa not seen due to solid stool that cannot be cleared. 1 = Portion of mucosa of the colon segment seen, but other areas of the colon segment not well seen due to staining, residual stool and/or opaque liquid. 2 = Minor amount of residual staining, small fragments of stool and/or opaque liquid, but mucosa of colon segment seen well. 3 = Entire mucosa of colon segment seen well with no residual staining, small fragments of stool or opaque liquid) Impression and Post Procedure Diagnosis: Endoscopy Findings: erosive esophagitis hiatal hernia schatzki ring erosive gastritis Colonoscopy Findings: diverticulosis colon polyp internal hemorrhoids Plan: Await Pathology results Repeat Colonoscopy in 5 years due to polyp or earlier if clinically indicated High fiber diet leaflet avoid straining at stool, epsom salts and sitz bath, anusol supps or cream check compliance with PPI and NSAId use Above findings were reviewed with the patient and relevant handouts were provided if indicated.
[2025-08-15 09:20] VITALS: BP 109/70; PULSE 65; RESP 15; TEMP 37; O2SAT 96
[2025-08-15 09:35] VITALS: BP 138/82; PULSE 62; RESP 18; TEMP 36.4; O2SAT 97
== END 2025-08-15 10:06 | disposition home or self-care (01) ==
PROVIDERS: Visit Provider Internal Medicine Gastroenterology
PROC: (CPT 45385; principal; 2025-08-15 08:30)
DX: Z12.11 Encounter for screening for malignant neoplasm of colon (principal); D12.3 Benign neoplasm of transverse colon; K57.30 Diverticulosis of large intestine without perforation or abscess without bleeding; K64.0 First degree hemorrhoids; K21.9 Gastro-esophageal reflux disease without esophagitis; K22.2 Esophageal obstruction; K20.80 Other esophagitis without bleeding; K29.60 Other gastritis without bleeding; K44.9 Diaphragmatic hernia without obstruction or gangrene; R73.03 Prediabetes; J45.909 Unspecified asthma, uncomplicated; G47.33 Obstructive sleep apnea (adult) (pediatric); Z79.899 Other long term (current) drug therapy; Z88.6 Allergy status to analgesic agent; Z98.890 Other specified postprocedural states; Z87.891 Personal history of nicotine dependence
CPT/HCPCS: 45385; 45380; 43249; 43239; 88305; 88313; 88342; C1726; J2250; J2704; J3010

== ENCOUNTER → 2025-08-15 07:06 | Outpatient (BNV) | payer OTHER, SELFPAY | PROVIDERS: Visit Provider Internal Medicine Gastroenterology | DX: Z12.11 Encounter for screening for malignant neoplasm of colon (principal); Z86.0100 Personal history of colon polyps, unspecified; D12.3 Benign neoplasm of transverse colon; K57.30 Diverticulosis of large intestine without perforation or abscess without bleeding; K64.0 First degree hemorrhoids; K22.2 Esophageal obstruction; K21.00 Gastro-esophageal reflux disease with esophagitis, without bleeding; K29.00 Acute gastritis without bleeding | CPT/HCPCS: 43239; 43249; 45380; 45385 ==

== ENCOUNTER 2025-08-21 13:44 | Outpatient (AMB) | payer OTHER, SELFPAY ==
--- NOTE | 2025-08-21 13:51 | MHC.OFFVIS ---
Vital Signs 08/21/25 13:57 Height 5 ft 3 in Weight 201 lb BMI 35.6 BP 134/74 Blood Pressure Location Lt brachial Position Sitting Pulse 85 Pulse Oximetry (%) 98 Oxygen Delivery Method Room Air Intake Visit Reasons: s/p egd randy Escalona Intake Note: Patient follow up for GERD, EGD/Colonoscopy results Patient cc: GERD, abdominal discomfort after Colonoscopy, patient was not able to use the bathroom and finally she used it yesterday, rectal chronic itchy after Colonoscopy and acid reflux. send her a med afer the EGD and pharmacy is waiting for provider approve/Esomeprazole Wooden Box Maker Required: No Accompanied by: Daughter Allergies aspirin (ASA) Allergy (Unknown, Verified 08/21/25 13:48) NAUSEA & VOMITING ibuprofen (From MOTRIN) Allergy (Unknown, Verified 08/21/25 13:48) HEADACHES egg Allergy (Verified 08/21/25 13:48) Nausea, choking Medication List - Last Reconciled 08/21/25 by Taylor Richter CNP albuterol sulfate 90 mcg/actuation 2 puffs inhalation Q6H PRN cetirizine 10 mg PO DAILY PRN docusate sodium 200 mg (2 x 100 mg) PO .QHS PRN epinephrine 0.3 mg IM ONCE PRN famotidine 40 mg PO DAILY fluticasone propion-salmeterol 500-50 mcg/dose (Advair Diskus) 1 inh inhalation BID fluticasone propionate 50 mcg/actuation (Allergy Relief (fluticasone)) 1 spray intranasal DAILY pantoprazole 40 mg PO DAILY 30 days sucralfate 1 g PO TID HPI HPI s/p egd randy Escalona: Details: Patient is a 64-year-old female with PMH of depression, anxiety, asthma, obesity, MALINA, hypertension, prediabetes and GERD. Last visit with DEIRCK Fernandes 03/30/2023 for acid reflux F/U after EGD and colonoscopy performed 1 week ago for persistent reflux and CRC screening. Patient is accompanied by her daughter who helps with translation as needed. Pt continues to experience persistent nocturnal reflux sx?primarily burning, unchanged since prior visit, with no daytime sx, regurgitation, or dysphagia. OTC antacids provided minimal relief. No recent use of prescribed PPI or H2RA due to insurance/pharmacy barriers; pt unable to obtain Rx. Bowel habits slow to return post-colonoscopy, with first BM since prep occurring today (soft, formed); denies pain or persistent constipation, maintains normal diet and hydration. New significant pruritus ani began day of colonoscopy, persistent, both internal and external, minimally improved with OTC topical Prep H; no bleeding. No hospitalizations, urgent care visits, or acute flares since last visit. [facility] Medical History (Updated 08/21/25 @ 15:15 by Taylor Richter CNP) Anal fissure Diarrhea Eczema HTN (hypertension) Depression Asthma Anxiety Prediabetes Chronic myofascial pain Osteoarthritis Diastolic dysfunction Obesity MALINA (obstructive sleep apnea) GERD (gastroesophageal reflux disease) Allergic rhinitis Surgical History Hx of tonsillectomy Hx of esophagogastroduodenoscopy Hx of colonoscopy Hx of total hysterectomy History of cholecystectomy Social History Household Members Other:: lives alone Alcohol intake: never Patient Tobacco Use Status: Former Tobacco user Tobacco use type: Cigarette Review of Systems Const Reports as per HPI ENT Reports as per HPI Card Reports as per HPI Resp Reports as per HPI GI Reports as per HPI Reports as per HPI Physical Exam Vital Signs: Last Vital Signs Pulse 85 08/21/25 13:57 BP 134/74 08/21/25 13:57 Pulse Ox 98 08/21/25 13:57 Oxygen Delivery Method Room Air 08/21/25 13:57 BMI result Body Mass Index 35.6 Const General: healthy appearing, no acute distress and well developed Nutritional Appearance: average body habitus Orientation/consciousness: patient oriented x3 HEENT Head: Yes normal to inspection, Yes normocephalic and Yes atraumatic Face and sinus: Yes normal facial exam Eyes General: appearance normal, both eyes and all related structures Neck Neck: Yes normal visual inspection Resp Effort & Inspection: normal respiratory effort, able to speak in complete sentences, no tracheal deviation and symmetric chest movement Cardio Jugular venous distension: no JVD GI Inspection: Yes normal to inspection, No distended, Yes obesity and Yes striae Palpation (GI): Soft to palpation, not firm, nontender and No hepatosplenomegaly present Auscultation: normal bowel sounds Rectal Exam - Female: visual inspection normal, normal sphincter tone, No fecal impaction, No Lesions present (GI), Anal fissure(s) present (located proximally), No hemorrhoids, No Excoriation present (GI), No mass and No tenderness Neuro General: patient oriented x3 Gait exam (Neuro): Normal gait present Psych Appearance: grossly normal Mental Status: mental status grossly normal Speech and movement: Normal speech and movement present Affect: normal affect Attitude: cooperative Thought process: Normal thought process present Thought content: Normal thought content present Insight: Good insight present (Psych) Judgement: Good judgement present (Psych) Assessment & Plan Assessment & Plan (1) Acid reflux: Comment: 02/25/23 EGD-Erosive esophagitis, Schatzki's ring, hiatal hernia, erosive gastritis, lax LES, Code(s): K21.9 - Gastro-esophageal reflux disease without esophagitis Category: Medical Qualifiers: Esophagitis presence: esophagitis presence not specified Qualified Code(s): K21.9 - Gastro-esophageal reflux disease without esophagitis Plan: Persistent, nocturnal symptoms; incomplete pharmacologic tx due to insurance barriers; minimal relief w/ OTC. Need for adequate, continuous acid suppression. Procedures confirm severe mucosal inflammation. Additional testing: None at present; consider repeat EGD only if non-response to full Rx and stability not achieved. Medications: - Esomeprazole 1 tab PO QAM x12 wks?Rx resent to pharmacy, instruct to take on empty stomach 30 mins before food/tea. Monitor for sxs control and adverse rxns. - Resume Famotidine 1 tab PO QHS for nocturnal Sx Lifestyle Recommendations: - Avoid identified reflux triggers (spicy, fatty, acidic/carbonated foods), implement small/frequent meals, avoid supine position postprandially, encourage ambulation after eating. - Provided verbal education; will reinforce with GERD diet handout if persistent sxs. Referrals / Coordination of Care: - None indicated at present. F/U Plan: - RTN in 3 months or sooner if sxs persist/worsen, new alarming sxs, or difficulty obtaining meds. Pt instructed to notify of any prescription/insurance barriers immediately. (2) Anal fissure: Code(s): K60.2 - Anal fissure, unspecified Category: Medical Plan: OTC agents insufficient for pruritus relief; fissure likely etiology. Avoidance of irritant wipes needed. Additional testing: None indicated now. Medications: - Hydrocortisone 2.5% oint/cream BID x up to 2 wks (Rx), topical application for pruritus and inflammation. Max 2 wks d/t risk skin thinning. Lifestyle Recommendations: - DC irritant wipes; use only soft, non-perfumed toilet paper. - Encourage gentle hygiene; maintain hydration and fiber for soft stools and fissure healing. Referrals / Coordination of Care: - None indicated unless recurrent/failure to heal. F/U Plan: - Monitor response?office revisit in 3 months or sooner for persistent or worsening sxs. (3) Change in stool: Comment: 08/15/25 Colonoscopy complete with adequate prep-8-10 mm Tubular adenoma (Transverse Colon) , diverticulosis , grade 1 internal hemorrhoids. Recommendations for repeat in 3 years ( 2027). 02/25/23 Colonoscopy, complete with adequate prep- diverticulosis, Fragments of tubular adenoma to cecum, ascending and sigmoid; redundant colon, internal hemorrhoids. Code(s): R19.5 - Other fecal abnormalities Category: Medical Plan: [place] 08/15/25 Large pre-malignant polyp removed, stable diverticulosis/internal hemorrhoids, otherwise reassuring. Slow return of bowel function post-prep, first BM today (soft, formed), no pain or persistent constipation. Expected post-procedural effect; now improving. Additional testing: None indicated unless persistent or worsening. Medications: None indicated. Lifestyle Recommendations: - Continue hydration, balanced diet, adequate fiber. - Monitor for normalization of bowel habits. Referrals / Coordination of Care: None required. F/U Plan: Monitor; RTN sooner if persistent constipation, pain, or new GI sxs. Plan Follow-up 3 months or sooner as needed Time: I spent a total of 35 minutes on the date of encounter which includes: Preparing to see the patient (reviewed previous documentation, test results and medical history) Performing a medically appropriate exam and/or evaluation Ordering medications, tests, and procedures Documenting clinical information in the health record Medications: New esomeprazole magnesium take one tablet at daily. Best taken on empty stomach, waiting 30 minutes before 40 mg PO DAILY 90 caps 0RF 56 days hydrocortisone 1% Apply to affected anal area twice daily for up to 2 weeks 1 appl topical BID 28.35 grams 0RF Discontinued pantoprazole Discontinued Reason: Doctor's Order 40 mg PO DAILY 30 days 30 tabs 11RF Coding Level of Care Code Established Pt Est Pt Level 4 (82906) Patient Type Established Diagnoses Gastroesophageal reflux disease, unspecified whether esophagitis present K21.9 Esophagitis presence: esophagitis presence not specified Anal fissure K60.2 Change in stool R19.5
[2025-08-21 13:57] VITALS: BP 134/74; PULSE 85; O2SAT 98; BMI 35.6
== END 2025-08-21 14:35 | disposition home or self-care (01) ==
LOC: HO.HGI 13:44
PROVIDERS: Visit Provider Nurse Practitioner Family
DX: K21.9 Gastro-esophageal reflux disease without esophagitis (principal); K60.2 Anal fissure, unspecified; R19.5 Other fecal abnormalities
CPT/HCPCS: 99214

== ENCOUNTER → 2025-08-21 13:44 | Outpatient (BNVA) | payer OTHER, SELFPAY | PROVIDERS: Visit Provider Nurse Practitioner Family | DX: K21.9 Gastro-esophageal reflux disease without esophagitis (principal); K60.2 Anal fissure, unspecified; R19.5 Other fecal abnormalities | CPT/HCPCS: 99212 ==